=== PATIENT | male | born 1985 | race Two or more races ===

== ENCOUNTER 2019-08-25 06:12 | Emergency (ER) | payer OTHER ==
[~2019-08-25] VITALS: Ht 170.2 cm; Wt 106.6 kg
[2019-08-25] MEDS ORDERED: LEVOTHYROXINE25 MCG (06:21)
[2019-08-25] MEDS ORDERED: PROMETH-CODEIN 65 ML PO (09:17)
[2019-08-25] MEDS ORDERED: MUCINEX1200 MG PO (09:17)
== END 2019-08-25 10:10 | disposition home or self-care (01) ==
LOC: ER 06:12
DX: R05 Cough (principal); R50.9 Fever, unspecified